=== PATIENT | male | born 1970 | race Caucasian/White ===

== ENCOUNTER → 2025-03-20 06:41 | Outpatient (REF) | payer BC, SELFPAY | LOC: RCS 06:41 | PROVIDERS: ATTENDING PHYSICIAN Student in an Organized Health Care Education/Training Program; FAMILY PHYSICIAN Student in an Organized Health Care Education/Training Program | DX: R07.9 Chest pain, unspecified (principal) | CPT/HCPCS: 78452; 93017; A9500 ==

== ENCOUNTER 2025-04-01 08:33 | Day surgery (SDC) | payer BC, SELFPAY ==
[2025-04-01] VITALS (15 sets, daily range): BP systolic 108–170; BP diastolic 60–80; BMI 25.8
[2025-04-01 10:01] LABS: Glucose - Point of Care 271 mg/dl (70-99)
[2025-04-01 12:52] LABS: ACT-LR - POC 355 Seconds (116-155)
--- NOTE | 2025-04-01 12:57 | ITS.CL.CATH ---
[facility] Nurse - Catheterization
Cardiac Catheterization
Procedure Report:
CARDIAC CATHETERIZATION REPORT
Date of Procedure: 04/01/2025
Referring: Joshua Dean M.D.
Indication: Vasculopath, abnormal stress test, severe dyspnea on exertion, known moderate to severe aortic valve insufficiency.
PROCEDURE:
1. Right heart catheterization.
2. Coronary angiography.
3. Left heart catheterization.
4. Ascending aortography.
5. Successful IFR of the proximal LAD.
A total of 36 minutes of procedural/moderate sedation was utilized. An independent medical practice assistant was present to assist with and help manage the patient's level of consciousness and physiologic status.
ACCESS:
1. 6 Georgian right radial artery using a modified Seldinger technique.
2. 5 Georgian right antecubital vein using a previously placed IV.
CATHETERS:
1. 5 Georgian balloon wedge.
2. 5 Georgian JL 3.5.
3. 5 Georgian JR4.
4. 5 Georgian straight pigtail catheter.
5. 6 Georgian EBU 4.0 guiding catheter.
HEMODYNAMIC DATA
Weight (kg): 86.3
AO (s/d/x, mmHg): 146/63/97
LV (s/x, mmHg): 146/10
PCWP (a/v/x, mmHg): 14/13/10
PA (s/d/x, mmHg): 25/10/15
RV (s/x, mmHg): 25/6
RA (a/v/x, mmHg): 11//
SVC SvO2 (%): 60.8
IVC SvO2 (%): Not obtained.
RA SvO2 (%): Not obtained.
RV SvO2 (%): Not obtained.
PA SvO2 (%): 62.4
SaO2 (%): 91.5
Hbg (g/dL): 11.1
NEHEMIAS
CO (L/min): 5.94
CI (L/min/m2): 2.85
Thermodilution
CO (L/min): Not performed.
CI (L/min/m2): Not performed.
TPG (mmHg): 5
PVR (Montalvo Units): 0.84
SVR (dynes*seconds*cm^-5): 1226
AVO2 Diff (Volume %): 4.39
Cardiac Power Output (maciel): 1.28 (MAP * CO)/451 (normal 0.5 - 0.7; 0.4 - 0.6 in the elderly)
Cardiac Power Index (maciel/m2): 0.61 (MAP * CI)/451
Janene: 2.5 (PAs-PAd)/RA
AV gradient (x, mmHg): None.
AV area (cm2): Normal.
MV gradient (x, mmHg): Not obtained.
MV area (cm2): Not obtained.
LEFT VENTRICULOGRAPHY: Not performed.
AORTOGRAPHY: Performed in an HILTON projection. At least moderately dilated aortic root with focal area of dense calcification along the proximal greater curvature. There appears to be effacement of the right and noncoronary ST junction. There is
moderate to severe aortic valve insufficiency. There is no evidence of aortic dissection.
CORONARY ANGIOGRAPHY
Dominance: Left.
Left Main: Large size, bifurcating vessel. There is no coronary artery disease.
LAD: Large size vessel giving rise to a large diagonal which supplies the anterolateral wall. There is a 70% lesion in the proximal LAD. There appears to be an ostial 80% lesion in the diagonal.
Ramus: Congenitally absent.
Circumflex: Large size, dominant vessel giving rise to 2 obtuse marginals before terminating as a left posterolateral arcade followed by an LPDA. The first obtuse marginal is a small vessel. The second obtuse marginal is a much larger vessel
which bifurcates into 2 daughter branches and supplies the majority of the inferolateral wall. There is a smooth, 70% lesion in the lower branch of OM 2. There is a 70-80% lesion in the distal circumflex as it becomes the LPDA.
RCA: Small size, nondominant vessel that is difficult to engage. There is a 50-60% lesion in the mid vessel.
INTERVENTIONS
1. Successful IFR of the 70% proximal LAD lesion demonstrating occlusive disease (iFR = 0.67).
Narrative:
The decision was made to perform physiologic testing. The diagnostic catheter was removed over a wire and exchanged for a(n) 6 Georgian EBU 4.0 guiding catheter. The guiding catheter was advanced into the ascending aorta and seated in the left main
coronary artery. Additional heparin was given to obtain an ACT greater than 250 seconds. An iFR wire was zeroed outside of the body, then inserted into the guiding sheath. The wire was advanced and the transducer was normalized just outside of the
guiding catheter tip. The wire was advanced into the mid LAD, beyond the 70% proximal LAD lesion. Three iFR measurements were taken. The lesion was determined to be occlusive (0.67). iFR normalized on pullback. Angiography was repeated,
demonstrating stable coronary anatomy. The catheter was disengaged and the wire was withdrawn.
Closure Device: Vascular band for the right radial artery, manual pressure for the right antecubital vein.
Radiation dose (mGy): 434
DAP (cm2.Gy): 23.5
Fluoroscopy time (minutes): 7.8
CONCLUSIONS:
1. Left dominant circulation with a smooth, 70% lesion in the lower branch of OM 2, a 70-80% lesion in the distal dominant circumflex as a becomes the LPDA and an occlusive 70% lesion in the proximal LAD (iFR = 0.67) as well as an 80% lesion in the
ostium of the first diagonal.
2. Moderately dilated aortic root with focal, dense calcification along the proximal greater curve with effacement of the right and noncoronary ST junction.
3. Moderate to severe aortic valve insufficiency.
4. Normal filling pressures (LVEDP = 10 mmHg, PCWP = 10 mmHg at 86.3 kg).
5. Preserved cardiac performance measurements (cardiac index = 2.85 L/min/m�, AVO2 difference = 4.39 volume%, cardiac power output = 1.28 W, Janene = 2.5).
6. Notable discrepancy with a 40 mmHg increase in noninvasive blood pressure in the left upper extremity compared to central measurement.
RECOMMENDATIONS:
1. Expectant management after cardiac catheterization via right radial/antecubital approach.
2. Limited weight bearing on the right wrist for one week.
3. Consultation with CT surgery regarding optimal revascularization and valve/aorta management.
4. CTA chest to evaluate aortic root as well as the bilateral subclavian arteries and preparation for possible arterial grafting.
5. OMT/GDMT as hemodynamics will tolerate.
6. Maintain dual antiplatelet therapy for recently placed right carotid artery stent.
Copy to: Joshua Dean M.D., Amauri Worthington D.O.
Scott Law DO, FACC, FACP
--- NOTE | 2025-04-01 13:23 | PTCARENOTE ---
pts blood sugar 227 after procedure . notified nidhi alexander np . no treatment at this time
[2025-04-01 13:38] LABS: Glucose - Point of Care 227 mg/dl (70-99)
== END 2025-04-01 16:30 | disposition home or self-care (01) ==
LOC: CATH 08:33
PROVIDERS: ATTENDING PHYSICIAN Internal Medicine Cardiovascular Disease; FAMILY PHYSICIAN Student in an Organized Health Care Education/Training Program; OTHER PHYSICIAN Student in an Organized Health Care Education/Training Program
DX: I35.1 Nonrheumatic aortic (valve) insufficiency (principal); I25.10 Atherosclerotic heart disease of native coronary artery without angina pectoris; I77.810 Thoracic aortic ectasia; I10 Essential (primary) hypertension; E78.2 Mixed hyperlipidemia; E11.9 Type 2 diabetes mellitus without complications; Z79.84 Long term (current) use of oral hypoglycemic drugs; Z79.82 Long term (current) use of aspirin; Z79.899 Other long term (current) drug therapy
CPT/HCPCS: 93799; 99152; 99153; 82962; 85347; 93460; 93567; C1769; C1887; C1894; Q9967

== ENCOUNTER → 2025-04-03 12:57 | Outpatient (REF) | payer BC, SELFPAY | LOC: RAD 12:57 | PROVIDERS: ATTENDING PHYSICIAN Internal Medicine Cardiovascular Disease; FAMILY PHYSICIAN Student in an Organized Health Care Education/Training Program | DX: I77.810 Thoracic aortic ectasia (principal) | CPT/HCPCS: 71275; Q9967 ==